=== PATIENT | female | born 1990 | race African-American/Black ===

== ENCOUNTER → 2018-12-04 | Outpatient (CLI) | payer OTHER | END | disposition home or self-care (01) | LOC: LAB 09:30 | PROVIDERS: ATTEND Preventive Medicine Preventive Medicine/Occupational Environmental Medicine | DX: Z02.1 Encounter for pre-employment examination (principal) | CPT/HCPCS: 36415; 86706; 86735; 86762; 86765 ==

== ENCOUNTER 2019-07-13 06:33 | Emergency (ER) | payer SELFPAY ==
[~2019-07-13] VITALS: Ht 162.6 cm; Wt 73.5 kg
[2019-07-13 06:42] VITALS: BP 130/67
== END 2019-07-13 08:17 | disposition home or self-care (01) ==
LOC: ER 06:33
DX: J06.9 Acute upper respiratory infection, unspecified (principal)
CPT/HCPCS: 71046

== ENCOUNTER → 2020-01-26 | Outpatient (CLI) | payer OTHER | END | disposition home or self-care (01) | LOC: LAB 06:55 | PROVIDERS: ATTEND Nurse Practitioner Family | DX: Z20.828 Contact with and (suspected) exposure to other viral communicable diseases (principal) ==

== ENCOUNTER 2020-05-12 06:21 | Emergency (ER) | payer SELFPAY ==
[~2020-05-12] VITALS: Ht 162.6 cm; Wt 72.6 kg
[2020-05-12 06:50] VITALS: BP 119/62
[2020-05-12] MEDS ORDERED: KETOROLAC TROMETH 60MG/2ML VIAL IM ONE (08:00)
== END 2020-05-12 08:20 | disposition home or self-care (01) ==
LOC: EEVIPCON 06:21 → ER 06:21
DX: S93.401A Sprain of unspecified ligament of right ankle, initial encounter (principal); X58.XXXA Exposure to other specified factors, initial encounter; Y93.89 Activity, other specified; Y99.8 Other external cause status; Y92.89 Other specified places as the place of occurrence of the external cause
CPT/HCPCS: 73610; 96372; 99283; J1885

== ENCOUNTER → 2020-06-03 | Outpatient (CLI) | payer OTHER | END | disposition home or self-care (01) | LOC: LAB 17:34 | PROVIDERS: ATTEND Nurse Practitioner Family | DX: U07.1 COVID-19 (principal) | CPT/HCPCS: C9803; U0003 ==

== ENCOUNTER 2020-11-10 01:16 | Emergency (ER) | payer OTHER ==
[~2020-11-10] VITALS: Ht 162.6 cm; Wt 77.1 kg
[2020-11-10 02:00] VITALS: BP 128/75
== END 2020-11-10 02:05 | disposition home or self-care (01) ==
LOC: ER 01:19
DX: R50.9 Fever, unspecified (principal); R05 Cough; J02.9 Acute pharyngitis, unspecified; Z20.822 Contact with and (suspected) exposure to COVID-19
CPT/HCPCS: 99283; C9803; U0003

== ENCOUNTER 2022-11-01 01:29 | Emergency (ER) | payer SELFPAY ==
[~2022-11-01] VITALS: Ht 160 cm; Wt 80.9 kg
[2022-11-01] MEDS ORDERED: AZIT250T9 PO (02:21)
[2022-11-01 02:43] VITALS: BP 115/77
== END 2022-11-01 02:46 | disposition home or self-care (01) ==
LOC: ER 01:29
DX: J02.8 Acute pharyngitis due to other specified organisms (principal); Z90.89 Acquired absence of other organs
CPT/HCPCS: 87070; 87880

== ENCOUNTER 2024-02-05 00:25 | Emergency (ER) | payer SELFPAY ==
[~2024-02-05] VITALS: Ht 162.6 cm; Wt 77.7 kg
[~2024-02-05 00:25] MED LIST: AZIT-43 PO
[2024-02-05 00:40] VITALS: BP 116/60; PULSE 88; RESP 16; O2SAT 99
== END 2024-02-05 01:13 | disposition left against medical advice (07) ==
LOC: ER 00:25
DX: M79.641 Pain in right hand (principal); Z53.21 Procedure and treatment not carried out due to patient leaving prior to being seen by health care provider; X50.1XXA Overexertion from prolonged static or awkward postures, initial encounter; Y93.89 Activity, other specified; Y92.89 Other specified places as the place of occurrence of the external cause; Y99.8 Other external cause status